=== PATIENT | female | born 1935 ===

== ENCOUNTER 2023-07-26 14:34 | Outpatient (CLI) | payer MEDICARE | END 2023-07-26 14:35 | disposition home or self-care (01) | LOC: CSHWCC 14:34 | PROVIDERS: ATTEND Nurse Practitioner Family | DX: I83.023 Varicose veins of left lower extremity with ulcer of ankle (principal); L97.322 Non-pressure chronic ulcer of left ankle with fat layer exposed; I73.9 Peripheral vascular disease, unspecified; G20.C Parkinsonism, unspecified | CPT/HCPCS: 11042 ==

== ENCOUNTER 2023-08-08 11:35 | Outpatient (CLI) | payer MEDICARE | END 2023-08-08 11:36 | disposition home or self-care (01) | LOC: CSHWCC 11:35 | PROVIDERS: ATTEND Preventive Medicine Undersea and Hyperbaric Medicine | DX: L97.322 Non-pressure chronic ulcer of left ankle with fat layer exposed (principal); I83.023 Varicose veins of left lower extremity with ulcer of ankle; I73.9 Peripheral vascular disease, unspecified; G20.C Parkinsonism, unspecified | CPT/HCPCS: 11042 ==

== ENCOUNTER 2023-08-22 10:49 | Outpatient (CLI) | payer MEDICARE | END 2023-08-22 10:50 | disposition home or self-care (01) | LOC: CSHWCC 10:49 | PROVIDERS: ATTEND Nurse Practitioner Family | DX: I83.023 Varicose veins of left lower extremity with ulcer of ankle (principal); L97.322 Non-pressure chronic ulcer of left ankle with fat layer exposed; I73.9 Peripheral vascular disease, unspecified; G20.C Parkinsonism, unspecified | CPT/HCPCS: 11042; 87070; 87186; 87205 ==

== ENCOUNTER 2023-09-05 10:57 | Outpatient (CLI) | payer MEDICARE | END 2023-09-05 10:58 | disposition home or self-care (01) | LOC: CSHWCC 10:57 | PROVIDERS: ATTEND Nurse Practitioner Family | DX: L97.322 Non-pressure chronic ulcer of left ankle with fat layer exposed (principal); L97.222 Non-pressure chronic ulcer of left calf with fat layer exposed; I83.023 Varicose veins of left lower extremity with ulcer of ankle; I73.9 Peripheral vascular disease, unspecified; G20.C Parkinsonism, unspecified | CPT/HCPCS: 11042 ==

== ENCOUNTER 2023-11-20 12:49 | Outpatient (CLI) | payer MEDICARE | END 2023-11-20 12:50 | disposition home or self-care (01) | LOC: CSHWCC 12:49 | PROVIDERS: ATTEND Nurse Practitioner Family | DX: I83.023 Varicose veins of left lower extremity with ulcer of ankle (principal); L97.322 Non-pressure chronic ulcer of left ankle with fat layer exposed; I73.9 Peripheral vascular disease, unspecified; G20.C Parkinsonism, unspecified | CPT/HCPCS: 99212; G0463 ==

== ENCOUNTER 2023-12-27 12:43 | Outpatient (CLI) | payer MEDICARE | END 2023-12-27 12:44 | disposition home or self-care (01) | LOC: CSHWCC 12:43 | PROVIDERS: ATTEND Nurse Practitioner Family | DX: I83.023 Varicose veins of left lower extremity with ulcer of ankle (principal); L97.322 Non-pressure chronic ulcer of left ankle with fat layer exposed; I73.9 Peripheral vascular disease, unspecified; G20.C Parkinsonism, unspecified | CPT/HCPCS: 11042; 87070; 87077; 87186; 87205 ==